=== PATIENT | male | born 1960 | race Caucasian/White ===

== ENCOUNTER → 2016-05-17 | Outpatient (CLI) | payer BC ==
[2016-05-17 12:21] LABS: ALT 68 U/L (21-72); AST 51 U/L (17-59); Alkaline Phosphatase 50 U/L (38-126); Anion Gap 9 mmol/L; Blood Urea Nitrogen 18 mg/dL (9-20); Carbon Dioxide 31 mmol/L (22-30); Chloride 103 mmol/L (98-107); Cholesterol 129 mg/dL (<200); Glucose 125 mg/dL (74-99); HDL Cholesterol 45 mg/dL (40-60); Non-African American GFR(MDRD) >60 (>60 ml/min/1.73 sqM); Potassium 4.8 mmol/L (3.5-5.1); Sodium 143 mmol/L (137-145); Total Bilirubin 2.3 mg/dL (0.2-1.3); Total Protein 7.1 g/dL (6.3-8.2); Triglycerides 96 mg/dL (<150)
[2016-05-17 13:08] LABS: Hepatitis C Virus IgG Index 0.01
[2016-05-17 13:15] LABS: Hepatitis C Virus IgG Ab Negative (Negative)
[2016-05-17 13:38] LABS: Hemoglobin A1C 7.3 % (4.2-6.1)
== END | disposition home or self-care (01) ==
LOC: LABWHC1 11:19
PROVIDERS: ATTEND Family Medicine
DX: Z00.00 Encounter for general adult medical examination without abnormal findings (principal); E11.9 Type 2 diabetes mellitus without complications
CPT/HCPCS: 36415; 80053; 80061; 83036; 86803

== ENCOUNTER → 2016-11-28 | Outpatient (CLI) | payer BC ==
[2016-11-28 08:46] LABS: ALT 49 U/L (21-72); AST 36 U/L (17-59); Alkaline Phosphatase 42 U/L (38-126); Anion Gap 7 mmol/L; Blood Urea Nitrogen 21 mg/dL (9-20); Calcium 9.3 mg/dL (8.4-10.2); Carbon Dioxide 31 mmol/L (22-30); Chloride 103 mmol/L (98-107); Cholesterol 115 mg/dL (<200); Glucose 112 mg/dL (74-99); HDL Cholesterol 39 mg/dL (40-60); Non-African American GFR(MDRD) >60 (>60 ml/min/1.73 sqM); Potassium 4.4 mmol/L (3.5-5.1); Sodium 141 mmol/L (137-145); Total Bilirubin 1.4 mg/dL (0.2-1.3); Total Protein 6.7 g/dL (6.3-8.2)
[2016-11-28 12:32] LABS: Hemoglobin A1C 6.5 % (4.2-6.1)
== END | disposition home or self-care (01) ==
LOC: LABWHC1 08:23
PROVIDERS: ATTEND Family Medicine
DX: E11.9 Type 2 diabetes mellitus without complications (principal)
CPT/HCPCS: 36415; 80053; 80061; 83036

== ENCOUNTER → 2016-12-04 | Outpatient (CLI) | payer BC ==
--- NOTE | 2016-12-04 10:59 | US ---
EXAMINATION TYPE: US abdomen comp/pelvis limited DATE OF EXAM: 12/04/2016 COMPARISON: None CLINICAL HISTORY: 56-year-old male Z87.442 Personal urinary calculi. Patient states lower ABD pain an d h/o renal stones. Technique: Multiple sonographic images of the abdomen and bladder are obtained. FINDINGS: Liver Length: 14.6 cm Gallbladder Wall: 0.3 cm CBD: 0.3 cm Spleen: 14.1 cm Right Kidney: 11.6 x 6.2 x 5.9 cm Left Kidney: 12.7 x 6.2 x 5.1 cm Pancreas: Only the pancreatic body is seen. Main pancreatic duct slightly prominent but within beny l limits at 2 mm. The provided images show possible minimal peripancreatic fluid along the anterior m argin. The [employer] glazer does not comment on this finding, this appearance may be due to technique Liver: Markedly echogenic and attenuating with some focal fatty sparing near the gallbladder fossa. Gallbladder: wnl CBD: wnl Spleen: Mildly enlarged. Right Kidney: no hydronephrosis Left Kidney: No hydronephrosis Upper IVC: Difficult to visualize due to fatty liver Abd Aorta: Proximal and distal wnl, mid gassed out Bladder: No gross abnormality. Bilateral Jets Seen Yes IMPRESSION: 1. No hydronephrosis. Both ureteral jets are seen. 2. Marked hepatic steatosis. Correlate with LFTs, lipid profile, and patient risk factors. 3. Either mild peripancreatic fluid or technical artifact. Correlate with patient's symptoms and with amylase/lipase if indicated. A short interval follow-up can be considered. 4. Mild splenomegaly (14.1 cm).
== END | disposition home or self-care (01) ==
LOC: RADUSWWP 10:14
PROVIDERS: ATTEND Family Medicine
DX: K76.0 Fatty (change of) liver, not elsewhere classified (principal); R16.1 Splenomegaly, not elsewhere classified; R30.0 Dysuria; Z87.442 Personal history of urinary calculi
CPT/HCPCS: 76700; 76857

== ENCOUNTER → 2017-01-03 | Outpatient (CLI) | payer BC ==
[2017-01-03 13:51] LABS: Basophils # (A) 0.1 k/uL (0-0.2); Basophils % (A) 1 %; CH 32.4; CHCM 33.8; Eosinophils # (A) 0.6 k/uL (0-0.7); Eosinophils % (A) 9 %; HCT 42.1 % (39.0-53.0); HDW 2.43; HGB 13.9 gm/dL (13.0-17.5); Luc # (Auto) 0.16; Luc % (Auto) 3; Lymphocytes # (A) 2.3 k/uL (1.0-4.8); Lymphocytes % (A) 36 %; MCH 31.8 pg (25.0-35.0); MCHC 33.1 g/dL (31.0-37.0); Mean Platelet Volume 8.4; Monocytes # (A) 0.4 k/uL (0-1.0); Monocytes % (A) 7 %; Neutrophils # (A) 2.8 k/uL (1.3-7.7); Neutrophils % (A) 44 %; RBC 4.39 m/uL (4.30-5.90); RDW 13.2 % (11.5-15.5); WBC 6.4 k/uL (3.8-10.6); WBC (Perox) 6.61
[2017-01-03 13:58] LABS: ALT 59 U/L (21-72); AST 37 U/L (17-59); Alkaline Phosphatase 49 U/L (38-126); Amylase 63 U/L (30-110); Anion Gap 8 mmol/L; Blood Urea Nitrogen 14 mg/dL (9-20); Calcium 9.8 mg/dL (8.4-10.2); Carbon Dioxide 30 mmol/L (22-30); Chloride 102 mmol/L (98-107); Glucose 108 mg/dL (74-99); Non-African American GFR(MDRD) >60 (>60 ml/min/1.73 sqM); Potassium 4.8 mmol/L (3.5-5.1); Sodium 140 mmol/L (137-145); Total Bilirubin 1.4 mg/dL (0.2-1.3); Total Protein 6.7 g/dL (6.3-8.2)
== END | disposition home or self-care (01) ==
LOC: LABWHC1 12:58
PROVIDERS: ATTEND Family Medicine
DX: R10.33 Periumbilical pain (principal)
CPT/HCPCS: 36415; 80053; 82150; 83690; 85025

== ENCOUNTER → 2017-01-06 | Outpatient (CLI) | payer BC ==
--- NOTE | 2017-01-06 14:54 | CT ---
EXAMINATION TYPE: CT abdomen w con DATE OF EXAM: 01/06/2017 COMPARISON: CT abdomen and pelvis August 13, 2012 HISTORY: Patient complains of periumbilical pain and elevated lipase. CT DLP: 790.5 mGycm, Automated Exposure Control for Dose Reduction was Utilized. CONTRAST: CT scan of the abdomen is performed with oral and with IV Contrast, patient injected with 100 mL of O mnipaque 300. FINDINGS: LUNG BASES: Linear scarring in the left lung base is redemonstrated. LIVER/GB: Liver is diffusely low dense consistent with marked fatty infiltration similar to prior. No worrisome mass or biliary ductal dilatation is seen. PANCREAS: Pancreas is overall stable and normal in size. No significant surrounding fluid or fat stra nding is seen. No calcification or ductal dilatation is noted. SPLEEN: No significant abnormality is seen. ADRENALS: No significant abnormality is seen. KIDNEYS: No significant abnormality is seen. BOWEL: Normal-appearing appendix is seen ascending from cecum. There is some prominence of fecal mate rial in the right and transverse colon slightly less prominent in the left colon. No suspicious small or large bowel dilatation is present. LYMPH NODES: No greater than 1cm abdominal lymph nodes are appreciated. OSSEOUS STRUCTURES: Slight dextroconvex scoliotic curvature is redemonstrated. There is multilevel sp urring in the thoracolumbar spine. There is facet arthropathy lower lumbar levels. Small sclerotic fo ci L2 and L3 vertebra are nonspecific favor benign bone islands. OTHER: No significant additional abnormality is seen. IMPRESSION: 1. Diffuse fatty infiltration of liver redemonstrated. 2. Fairly moderate proximal to mid colonic fecal stasis. No bowel obstruction is seen. 3. No CT evidence of complication related to acute pancreatitis.
== END | disposition home or self-care (01) ==
LOC: RADCTMAIN 13:04
PROVIDERS: ATTEND Family Medicine
DX: K76.0 Fatty (change of) liver, not elsewhere classified (principal)
CPT/HCPCS: 74160; Q9967

== ENCOUNTER → 2017-01-15 | Outpatient (CLI) | payer BC ==
--- NOTE | 2017-01-15 09:26 | NM ---
EXAMINATION TYPE: NM hepatobiliary w EF DATE OF EXAM: 01/15/2017 COMPARISON: Prior nuclear medicine HIDA scan July 02, 2010. Prior CT abdomen January 06, 2017 HISTORY: Cholecystitis per order. Abdominal pain with heartburn and reflux-like symptoms per patient. TECHNIQUE: After the intravenous administration of 5.57 mCi Tc 99m Mebrofenin hepatobiliary scintigra phy is performed. Immediate images post injection. FINDINGS: There is overall diminished accumulation of tracer by the liver. This is likely product of diffuse fa tty infiltration as seen on recent CT. The gallbladder is visualized within 10 minutes. The small jose wel activity is noted within 45 minutes. At one hour 8 ounces of oral ensure plus is given to mimic CCK and gallbladder ejection fraction is calculated at 78 %, in the normal range. Therefore there is no scintigraphic evidence of cystic or common bile duct obstruction to suggest acute cholecystitis o r gallbladder dyskinesia. IMPRESSION: Exam is within normal limits.
== END | disposition home or self-care (01) ==
LOC: RADNMMAIN 06:51
PROVIDERS: ATTEND Surgery
DX: K81.1 Chronic cholecystitis (principal)
CPT/HCPCS: 78226; A9537

== ENCOUNTER 2017-04-08 08:31 | Day surgery (SDC) | payer BC ==
[2017-03-31 11:38] VITALS: BMI 29.8
[~2017-04-08 08:31] MED LIST: DEXAMETHASONE SOD PHOSPHATE 10 MG/ML 1 ML VIAL IV ONE; HEPARIN SODIUM,PORCINE 5,000 UNIT/ML 1 ML VIAL SQ ONE; LACTATED RINGERS 1,000 ML IV SCH; MIDAZOLAM 2 MG/2 ML VIAL IV PRN; ONDANSETRON 4 MG/2 ML VIAL IVP ONE; ceFAZolin IN SWFI 2 GM/20 ML SYRINGE IVP ONE
[2017-04-08] MEDS ORDERED: LIDOCAINE 1% 20 ML VIAL (10MG/ML) FOR IV START INTRADERMA ONE (09:13)
--- NOTE | 2017-04-08 09:14 | P.GSHP ---
History of Present Illness H&P Date: 04/08/17 Chief Complaint: Incisional hernia This is a 56-year-old male who presents today for laparoscopic robotic system repair of incisional hernia. Patient had a previous umbilical hernia repair performed at his umbilicus. He has a recurrent small umbilical hernia. He presents today for laparoscopic robotic system repair. He has undergone recent laparoscopic cholecystectomy. Past Medical History Past Medical History: Diabetes Mellitus, Fibromyalgia, Hearing Disorder / Deafness, Hyperlipidemia, Hypertension, Osteoarthritis (OA) Additional Past Medical History / Comment(s): Recent sinus infection, finished antibiotics few days ago. 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 Past Anesthesia/Blood Transfusion Reactions: No Reported Reaction Past Psychological History: No Psychological Hx Reported Smoking Status: Former smoker Past Alcohol Use History: None Reported Additional Past Alcohol Use History / Comment(s): Quit smoking 17 yrs ago. Past Drug Use History: None Reported - Past Family History Mother Family Medical History: No Reported History Medications and Allergies Home Medications Medication Instructions Recorded Confirmed Type Atorvastatin Calcium [Lipitor] 10 mg PO DAILY 04/04/15 04/01/17 History Fish Oil/Dha/Epa [Fish Oil 1,200 2 each PO DAILY 04/04/15 04/01/17 History mg Fish Oil] Fluticasone Nasal [place] [Flonase 1 spray EA NOSTRIL HS 04/04/15 04/01/17 History Nasal [place]] Gabapentin [Neurontin] 100 mg PO TID 04/04/15 04/01/17 History HYDROcodone/APAP 10-325MG [[place] 1 tab PO TID 04/04/15 04/01/17 History 10-325] Losartan [Cozaar] 25 mg PO QAM 04/04/15 04/01/17 History Metoprolol Succinate [Toprol XL] 25 mg PO QAM 04/04/15 04/01/17 History metFORMIN HCL [Glucophage] 500 mg PO BID 04/04/15 04/01/17 History Montelukast [Singulair] 10 mg PO HS 03/31/17 04/01/17 History Naproxen Sodium/Pseudoephedrin 1 each PO DAILY 03/31/17 04/01/17 History [Aleve Cold and Sinus Caplet] Naproxen [Naprosyn] 250 mg PO BID 03/31/17 04/01/17 History Docusate [Colace] 100 mg PO BID #20 capsule 04/01/17 Rx HYDROcodone/APAP 7.5-325MG [[place] 1 each PO Q4H PRN #30 tab 04/01/17 Rx 7.5] Allergies Allergy/AdvReac Type Severity Reaction Status Date / Time No Known Allergies Allergy Verified 03/31/17 10:20 Surgical - Exam Vital Signs Temp Pulse Resp BP Pulse Ox 98.1 F 84 16 134/81 100 04/08/17 09:06 04/08/17 09:06 04/08/17 09:06 04/08/17 09:06 04/08/17 09:06 - General well developed, no distress - Eyes PERRL - ENT normal pinna - Neck no masses - Respiratory normal expansion - Cardiovascular Rhythm: regular - Abdomen Abdomen: soft, non tender Hernia: incisional (1 cm incisional hernia located below the umbilicus) Assessment and Plan Assessment: Incisional hernia. We'll perform laparoscopic robotic system repair.
[2017-04-08 09:24] LABS: Glucose,Whole Blood 137 mg/dL (75-99)
[2017-04-08] MEDS ORDERED: MIDAZOLAM 2 MG/2 ML VIAL ONE (09:35)
[2017-04-08] MEDS ORDERED: KETOROLAC 30 MG/ML 1 ML VIAL ONE (09:35)
[2017-04-08] MEDS ORDERED: PHENYLEPHRINE-0.9% NACL SYG 1 MG/10 ML SYRINGE ONE (09:35)
[2017-04-08] MEDS ORDERED: PROPOFOL 10 MG/ML 20 ML VIAL IV ONE (09:35)
[2017-04-08] MEDS ORDERED: ROCURONIUM BROMIDE 10 MG/ML 10 ML VIAL IV ONE (09:35)
[2017-04-08] MEDS ORDERED: SUCCINYLCHOLINE CHLORIDE 100 MG/5 ML SYR IV ONE (09:35)
[2017-04-08] MEDS ORDERED: fentaNYL (PF) 50 MCG/ML 2 ML AMP ONE (09:35)
[2017-04-08] MEDS ORDERED: LIDOCAINE 1% INJ 10MG/ML (20 ML MDV) ONE (09:35)
[2017-04-08] MEDS ORDERED: GLYCOPYRROLATE 0.2 MG/ML 2 ML VIAL ONE (09:35)
[2017-04-08] MEDS ORDERED: NEOSTIGMINE 1 MG/ML 10 ML VIAL ONE (09:35)
[2017-04-08] MEDS ORDERED: BUPIVACAIN-EPI 0.5%-1:200,000 30 ML VIAL SQ ONE (09:54)
[2017-04-08] MEDS ORDERED: LACTATED RINGERS 1,000 ML IV ONE (10:25)
[2017-04-08 10:53] VITALS: TEMP 99.1
--- NOTE | 2017-04-08 11:00 | P.OP ---
Date of Procedure: 04/08/17 Preoperative Diagnosis: Incarcerated incisional hernia Postoperative Diagnosis: Incarcerated incisional hernia Procedure(s) Performed: Laparoscopic robotic system repair of incarcerated incisional hernia Anesthesia: CARLOS Surgeon: Mark Valdes Pathology: other (Incarcerated fat) Condition: stable Disposition: PACU Description of Procedure: The patient's placed on the operating table in the supine position. He received general anesthesia. His abdomen was prepped and draped in usual sterile fashion. The patient had a incarcerated hernia located just above the umbilicus. Using a 5 mm optical trocar under direct visualization the peritoneal cavity is entered. The abdomen was then insufflated and after adequate insufflation the laparoscope was placed back into the perineal cavity. The abdominal wall was visualized. The hernia appeared to be below his previous hernia repair. At this point the skin was incised over the hernia and a piece of incarcerated fat was withdrawn from the hernia. The fascial defect was then closed with a Don Rashid suture passer using 0 Ethibond suture. At this point a robotic 8 mm trochars placed left lower quadrant and a 12 mm trocar was placed the left lateral position and the original 5 mm trocar was exchanged for an 8 mm robotic trocar. The patient was then placed in the left side up position and then docked to the robot. The hernia repair was buttressed using ventral light ST mesh. This was secured with 20 the lock suture. The patient was then undocked the robot. The needles were retrieved. The trochars withdrawn. The skin was closed interrupted 3-0 Monocryl suture. Dermabond was applied. Patient was sent to recovery in stable condition.
[2017-04-08] MEDS: HYDROmorphone 0.5 MG/0.5 ML SYRINGE IVP PRN ×2 (11:23→11:34)
[2017-04-08 11:39] LABS: Glucose,Whole Blood 174 mg/dL (75-99)
[2017-04-08] MEDS ORDERED: HYDROcodone/APAP 7.5-325MG 1 EACH TAB PO ONE (12:21)
[2017-04-08 12:26] VITALS: RESP 18
[2017-04-08 12:31] VITALS: BP 128/76; PULSE 100
== END 2017-04-08 12:45 | disposition home or self-care (01) ==
LOC: OR 08:31
PROVIDERS: ATTEND Surgery
DX: K43.0 Incisional hernia with obstruction, without gangrene (principal); M79.7 Fibromyalgia; E11.42 Type 2 diabetes mellitus with diabetic polyneuropathy; H91.90 Unspecified hearing loss, unspecified ear; E78.5 Hyperlipidemia, unspecified; I10 Essential (primary) hypertension; M19.90 Unspecified osteoarthritis, unspecified site; Z79.891 Long term (current) use of opiate analgesic; Z79.84 Long term (current) use of oral hypoglycemic drugs; Z79.1 Long term (current) use of non-steroidal anti-inflammatories (NSAID); Z79.899 Other long term (current) drug therapy; Z87.891 Personal history of nicotine dependence
CPT/HCPCS: 49655; 86900; 86901; 86850; 88302; C1781; J2250; J1644; J1100; J2710; J0690; J2405; J2001; J3010; J1885; J2370; J0330; J2704; J1170

== ENCOUNTER → 2017-06-21 | Outpatient (CLI) | payer BC ==
[2017-06-21 10:18] LABS: Basophils # (A) 0.1 k/uL (0-0.2); Basophils % (A) 2 %; Eosinophils # (A) 0.4 k/uL (0-0.7); Eosinophils % (A) 9 %; HCT 42.3 % (39.0-53.0); HGB 12.5 gm/dL (13.0-17.5); Hypochromasia Moderate; Lymphocytes # (A) 1.8 k/uL (1.0-4.8); Lymphocytes % (A) 38 %; MCH 26.9 pg (25.0-35.0); MCHC 29.6 g/dL (31.0-37.0); MCV 90.7 fL (80.0-100.0); Mean Platelet Volume 7.9; Monocytes # (A) 0.3 k/uL (0-1.0); Monocytes % (A) 7 %; Neutrophils % (A) 42 %; Platelet Count 242 k/uL (150-450); RBC 4.66 m/uL (4.30-5.90); RDW 13.4 % (11.5-15.5); WBC 4.8 k/uL (3.8-10.6)
[2017-06-21 10:32] LABS: ALT 48 U/L (21-72); AST 47 U/L (17-59); Albumin 3.8 g/dL (3.5-5.0); Alkaline Phosphatase 47 U/L (38-126); Anion Gap 8 mmol/L; Blood Urea Nitrogen 18 mg/dL (9-20); Calcium 9.4 mg/dL (8.4-10.2); Carbon Dioxide 32 mmol/L (22-30); Chloride 102 mmol/L (98-107); Cholesterol 121 mg/dL (<200); Glucose 133 mg/dL (74-99); HDL Cholesterol 41 mg/dL (40-60); LDL Cholesterol,Calculated 64 mg/dL (0-99); Sodium 142 mmol/L (137-145); Total Bilirubin 1.3 mg/dL (0.2-1.3); Total Protein 6.2 g/dL (6.3-8.2); Triglycerides 81 mg/dL (<150)
[2017-06-21 20:22] LABS: Hemoglobin A1C 7.6 % (4.0-6.0)
== END | disposition home or self-care (01) ==
LOC: LABWHC1 08:40
PROVIDERS: ATTEND Family Medicine
DX: E11.9 Type 2 diabetes mellitus without complications (principal); Z13.9 Encounter for screening, unspecified; Z12.5 Encounter for screening for malignant neoplasm of prostate
CPT/HCPCS: 36415; 80053; 80061; 82043; 82570; 83036; 84153; 84443; 85025; 86803

== ENCOUNTER 2018-09-03 07:29 | Day surgery (SDC) | payer BC ==
[2018-09-02 10:27] VITALS: BMI 29.1
[~2018-09-03 07:29] MED LIST changes: -DEXAMETHASONE SOD PHOSPHATE 10 MG/ML 1 ML VIAL IV ONE; -HEPARIN SODIUM,PORCINE 5,000 UNIT/ML 1 ML VIAL SQ ONE; +LIDOCAINE 1% 20 ML VIAL (10MG/ML) FOR IV START INTRADERMA PRN; -MIDAZOLAM 2 MG/2 ML VIAL IV PRN; -ONDANSETRON 4 MG/2 ML VIAL IVP ONE; -ceFAZolin IN SWFI 2 GM/20 ML SYRINGE IVP ONE
[2018-09-03 07:52] LABS: Glucose,Whole Blood 125 mg/dL (75-99)
[2018-09-03 07:54] VITALS: RESP 16; TEMP 97.1
[2018-09-03] MEDS ORDERED: LIDOCAINE 1% INJ 10MG/ML (20 ML MDV) ONE (08:39)
[2018-09-03] MEDS ORDERED: PROPOFOL 10 MG/ML 20 ML VIAL IV ONE (08:39)
--- NOTE | 2018-09-03 09:24 | P.PCN ---
Date of Procedure: 09/03/18 Procedure(s) Performed: Procedures: 1. Esophagogastroduodenoscopy and biopsy. 2. Total colonoscopy. Preoperative diagnosis: Iron deficiency anemia. Postoperative diagnosis: 1. Very small sliding hiatal hernia with no obvious esophagitis or complicated reflux disease. 2. Mild antral gastritis. 3. Sigmoi d diverticulosis. Preparation: HalfLytely prep. Sedation: Was provided by anesthesia. Brief clinical history: The patient is a 58-year-old male who is scheduled for this evaluation because of finding of iron deficiency anemia. He had a screening colonoscopy at age 51. The patient has no overt bleeding. Some acid reflux symptoms but no dysphagia or unintentional weight loss. No abdominal sandrine ns, change in bowel habits or other symptoms. Procedure: With the patient on his left lateral decubitus position and after informed consent and adequate sedation, I passed the Olympus-GIF H 190 video upper endoscope through the cricopharyngeus down the esophagus. GE junction was around 40-41 cm from the incisors and there was a very small sliding hiatal hernia with no obvious esophagitis or complicated reflux. The endoscope was then passed into the stomach which was insufflated with air and inspected in detail including the retroflex view in the cardia. There was some mottling and erythema in the antrum but no ulcers or erosions. Pyloric channel did not show any ulcers. Duodenal bulb, post bulbar area and descending duodenum appeared within normal limits. Because of his anemia, I obtained biopsies from the duodenum, antrum and esophagus then the endoscope was withdrawn and I proceeded to perform the colonoscopy. The perianal area was inspected and it did not show any fissures or fistulas. There were no masses felt on digital rectal examination. The Olympus CFH 190L video colonoscope was then inserted in the rectum in the usual fashion and advanced to the cecum. Few diverticular orifices were noted scattered in the sigmoid with no evidence of acute diverticulitis or strictures. The mucosa appeared healthy. No polyps or tumors were seen. I retroflexed the endoscope in the rectum before the endoscope was withdrawn. The patient tolerated the procedures well. Plan: The patient was reassured. Will await biopsy results. Discussed dietary measures. He will follow up with you as planned and I recommended repeat colonoscopy in 10 years. It is likely that his anemia could be secondary to a combination of factors including chronic disease. I did not schedule a capsule endoscopy at this time. We will keep that as a contingency if he continues to manifest anemia and evidence of GI bleeding. I would be happy to see in the future if needed.
[2018-09-03 09:34] VITALS: BP 121/76; PULSE 74
== END 2018-09-03 09:57 | disposition home or self-care (01) ==
LOC: ORWHC2ENDO 07:29
DX: K44.9 Diaphragmatic hernia without obstruction or gangrene (principal); K57.90 Diverticulosis of intestine, part unspecified, without perforation or abscess without bleeding; K29.50 Unspecified chronic gastritis without bleeding; D50.9 Iron deficiency anemia, unspecified; I10 Essential (primary) hypertension; E78.5 Hyperlipidemia, unspecified; E11.9 Type 2 diabetes mellitus without complications; M19.90 Unspecified osteoarthritis, unspecified site; M79.7 Fibromyalgia; Z91.048 Other nonmedicinal substance allergy status; H91.90 Unspecified hearing loss, unspecified ear; Z79.84 Long term (current) use of oral hypoglycemic drugs; Z79.82 Long term (current) use of aspirin; Z79.1 Long term (current) use of non-steroidal anti-inflammatories (NSAID); Z79.891 Long term (current) use of opiate analgesic; Z79.899 Other long term (current) drug therapy
CPT/HCPCS: 88305; 45378; 43239; J2001; J2704

== ENCOUNTER → 2020-07-13 | Outpatient (CLI) | payer OTHER ==
--- NOTE | 2020-07-13 16:12 | CT ---
EXAMINATION TYPE: CT sinus wo con DATE OF EXAM: 07/13/2020 COMPARISON: 03/17/2015 HISTORY: Chronic sinusitis. CT DLP: 1060 mGycm CONTRAST: 0 mL of Isovue 300 The paranasal sinuses are examined in the axial plane at 2 mm thick sections. Reconstructed images i n the coronal plane were obtained. There is dental amalgam scatter artifact The maxillary sinuses are clear. The ethmoid air cells are clear. The sphenoid sinuses are clear. The frontal sinuses are clear. The septum is evaluated. There is septal deviation to the right. The ostiomeatal units are patent. IMPRESSIONS: 1. No suspicious mucosal thickening or air-fluid levels to suggest acute or chronic sinusitis. 2. Right septal deviation
== END | disposition home or self-care (01) ==
LOC: RADCTMAIN 15:34
PROVIDERS: ATTEND Otolaryngology
DX: J34.2 Deviated nasal septum (principal)
CPT/HCPCS: 70486

== ENCOUNTER → 2022-05-23 | Outpatient (CLI) | payer OTHER ==
[2022-05-23 22:46] LABS: Basophils % (A) 1.3 %; Eosinophils # (A) 0.26 X 10*3/uL (0.04-0.35); Eosinophils % (A) 3.4 %; HCT 37.1 % (39.6-50.0); HGB 10.7 g/dL (13.0-17.0); Immature Grans, Automated 0.4 %; Lymphocytes # (A) 2.56 X 10*3/uL (0.90-5.00); Lymphocytes % (A) 33.7 %; MCHC 28.8 g/dL (32.0-37.0); MCV 83.2 fL (80.0-97.0); Mean Platelet Volume 11.7 fL (9.5-12.2); Monocytes % (A) 7.9 %; NRBC Per 100 WBC 0 /100 WBCS (0.0-0.0); Neutrophils # (A) 4.05 X 10*3/uL (1.80-7.70); Neutrophils % (A) 53.3 %; Platelet Count 297 X 10*3/uL (140-440); RBC 4.46 X 10*6/uL (4.40-5.60); RDW 17.2 % (11.5-14.5)
[2022-05-23 23:27] LABS: ALT 20 U/L (10-49); AST 22 U/L (14-35); African American GFR (CKD) 109.6 (60.0-200.0); Albumin 4.6 g/dL (3.8-4.9); Albumin/Globulin Ratio 2.31 (1.60-3.17); Alkaline Phosphatase 59 U/L (41-126); BUN/Creat Ratio 15.22 Ratio (12.00-20.00); Calcium 9.7 mg/dL (8.7-10.3); Carbon Dioxide 25.7 mmol/L (20.0-27.5); Chloride 103 mmol/L (96-109); Chol/HDL Ratio 2.82 Ratio; Glucose 104 mg/dL (70-110); LDL Cholesterol,Calculated 56.3 mg/dL (0.0-131.0); Non-African American GFR(CKD) 94.5 (60.0-200.0); Potassium 4.4 mmol/L (3.5-5.5); Sodium 140 mmol/L (135-145); Total Protein 6.7 g/dL (6.2-8.2); VLDL Calculation 18.58 mg/dL (5.00-40.00)
== END | disposition home or self-care (01) ==
LOC: LABWHC1 14:11
PROVIDERS: ATTEND Family Medicine
DX: E11.9 Type 2 diabetes mellitus without complications (principal)
CPT/HCPCS: 36415; 80053; 80061; 82043; 82570; 83036; 84443; 85025

== ENCOUNTER → 2022-11-19 | Outpatient (CLI) | payer OTHER ==
[2022-11-19 14:42] LABS: ALT 23 U/L (10-49); AST 29 U/L (14-35); Albumin 4.5 d/dL (3.8-4.9); Albumin/Globulin Ratio 2.37 Ratio (1.60-3.17); Alkaline Phosphatase 47 U/L (41-126); BUN/Creat Ratio 15.22 Ratio (12.00-20.00); Blood Urea Nitrogen 13.7 mg/dL (9.0-27.0); Calcium 9.4 mg/dL (8.7-10.3); Chloride 102 mmol/L (96-109); Chol/HDL Ratio 2.54 Ratio; Globulin 1.9 d/dL (1.6-3.3); Glucose 110 mg/dL (70-110); LDL Cholesterol,Calculated 50.7 mg/dL (0.0-131.0); Potassium 4.5 mmol/L (3.5-5.5); Sodium 138 mmol/L (135-145); Total Bilirubin 1.2 mg/dL (0.3-1.2); Total Protein 6.4 d/dL (6.2-8.2); VLDL Calculation 13.52 mg/dL (5.00-40.00)
== END | disposition home or self-care (01) ==
LOC: LABWHC1 06:46
PROVIDERS: ATTEND Family Medicine
DX: E11.9 Type 2 diabetes mellitus without complications (principal)
CPT/HCPCS: 36415; 80053; 80061; 83036

== ENCOUNTER → 2023-02-27 | Outpatient (CLI) | payer OTHER | END | disposition home or self-care (01) | LOC: LABWHC1 07:10 | PROVIDERS: ATTEND Family Medicine | DX: Z12.5 Encounter for screening for malignant neoplasm of prostate (principal); E11.9 Type 2 diabetes mellitus without complications | CPT/HCPCS: 83036; 36415; G0103 ==

== ENCOUNTER → 2023-05-27 | Outpatient (CLI) | payer OTHER ==
[2023-05-27 11:12] LABS: Basophils # (A) 0.07 X 10*3/uL (0.00-0.10); Basophils % (A) 1.1 %; Eosinophils # (A) 0.27 X 10*3/uL (0.04-0.35); Eosinophils % (A) 4.1 %; HCT 42.5 % (39.6-50.0); HGB 13.6 g/dL (13.0-17.0); Lymphocytes # (A) 2.01 X 10*3/uL (0.90-5.00); Lymphocytes % (A) 30.8 %; MCH 30.8 pg (27.0-32.0); MCV 96.2 FL (80.0-97.0); Mean Platelet Volume 11.4 FL (9.5-12.2); Monocytes # (A) 0.55 X 10*3/uL (0.20-1.00); Monocytes % (A) 8.4 %; NRBC Per 100 WBC 0 X 10*3/uL (0.00-0.01); Neutrophils % (A) 55.3 %; Platelet Count 213 X 10*3/uL (140-440); RBC 4.42 X 10*6/uL (4.40-5.60); RDW 12.7 % (11.5-14.5); WBC 6.52 X 10*3/uL (4.50-10.00)
[2023-05-27 11:16] LABS: Microalbumin Creatinine Ratio <6 mg/g Cr (0-30)
[2023-05-27 11:24] LABS: ALT 20 U/L (10-49); AST 23 U/L (14-35); Albumin 4.3 g/dL (3.8-4.9); Albumin/Globulin Ratio 2.39 Ratio (1.60-3.17); Alkaline Phosphatase 51 U/L (41-126); BUN/Creat Ratio 15.44 Ratio (12.00-20.00); Blood Urea Nitrogen 13.9 mg/dL (9.0-27.0); Calcium 9.7 mg/dL (8.7-10.3); Carbon Dioxide 29.1 mmol/L (21.6-31.8); Chloride 102 mmol/L (96-109); Chol/HDL Ratio 2.22 Ratio; Globulin 1.8 g/dL (1.6-3.3); Glucose 110 mg/dL (70-110); LDL Cholesterol,Calculated 44.7 mg/dL (0.0-131.0); Potassium 4.9 mmol/L (3.5-5.5); Sodium 140 mmol/L (135-145); Total Bilirubin 1.6 mg/dL (0.3-1.2); Total Protein 6.1 g/dL (6.2-8.2); VLDL Calculation 12.46 mg/dL (5.00-40.00)
== END | disposition home or self-care (01) ==
LOC: LABWHC1 07:09
PROVIDERS: ATTEND Family Medicine
DX: E11.9 Type 2 diabetes mellitus without complications (principal)
CPT/HCPCS: 36415; 80053; 80061; 82043; 82570; 83036; 84443; 85025